=== PATIENT | female | born 1970 | race Caucasian/White ===

== ENCOUNTER → 2016-07-14 | Outpatient (CLI) | payer BC ==
--- NOTE | 2016-07-15 14:46 | CR ---
EXAM DATE: 07/14/16 PATIENT'S AGE: 46 Patient: REN GERONIMO Facility: [place], [place] Site . Site : 1970 Study: XRay Chest [id number]/26/2017 12:21:25 PM Ordering Physician: Yehuda Cline Final Report: INDICATION: Wheezing TECHNIQUE: Chest 2 views COMPARISON: None FINDINGS: Cardiovascular and mediastinum: Heart size and vasculature are normal in caliber and appearance. Mediastinum is within normal limits. Lungs and pleural spaces: No focal consolidation. No sign of pleural effusion. No pneumothorax. Bones and soft tissues: No significant findings. IMPRESSION: No acute cardiopulmonary disease. Dictated by Alexander Andrade MD @ 07/14/2016 11:51:49 PM Dictated by: Alexander Andrade MD @ 07/14/2016 23:51:56 (Electronic Signature) Report Signed by Proxy. [facility]
== END ==
LOC: MW.CHFP 11:44
PROVIDERS: ATTEND Physician Assistant
DX: R06.2 Wheezing (principal)
CPT/HCPCS: 36415; 71020; 71020-26; 85025

== ENCOUNTER 2018-09-29 06:19 | Day surgery (SDC) | payer BC ==
[2018-09-29] MEDS ORDERED: Lactated Ringers 1,000 ML IV SCH ×2 (07:00→08:15)
[2018-09-29] MEDS ORDERED: Propofol 200 MG/20 ML SDV ONE (07:08)
[2018-09-29] MEDS ORDERED: Lidocaine 2% 5 ML SDV ONE (07:08)
[2018-09-29] MEDS ORDERED: fentaNYL 100 MCG/2 ML SDV ONE (07:08)
[2018-09-29] MEDS ORDERED: Midazolam 1 MG/ML 2 ML SDV ONE (07:08)
--- NOTE | 2018-09-29 07:08 | PCM.PREANE ---
Preanesthetic Assessment - Anesthesia/Transfusion/Family Hx Anesthesia History: Prior Anesthesia Without Reaction Other Type of Anesthesia Reaction Comment: Denies any known problem with anesthesia in the past. Family History of Anesthesia Reaction: No Transfusion History: No Prior Transfusion(s) Intubation History: Unknown - Review of Systems General: No Symptoms Pulmonary: No Symptoms Cardiovascular: No Symptoms Gastrointestinal: Abdominal Pain Neurological: No Symptoms Other: Reports: None - Physical Assessment O2 Sat by Pulse Oximetry: 97 Respiratory Rate: 16 Vital Signs: Last Vital Signs Temp 36.3 C 09/29/18 06:50 Pulse 67 09/29/18 06:50 Resp 16 09/29/18 06:50 BP 126/67 09/29/18 06:50 Pulse Ox 97 09/29/18 06:50 Height: 5 ft 2 in Weight: 84.822 kg ASA Class: 2 Mental Status: Alert & Oriented x3 Airway Class: Mallampati = 2 Dentition: Reports: Implants (x1 upper, x2 lower) Thyro-Mental Finger Breadths: 3 Mouth Opening Finger Breadths: 3 ROM/Head Extension: Full Lungs: Clear to Auscultation, Normal Respiratory Effort Cardiovascular: Regular Rate, Regular Rhythm - Allergies Allergies/Adverse Reactions: Allergies Allergy/AdvReac Type Severity Reaction Status Date / Time Penicillins Allergy Mouth Sores Verified 09/26/18 14:17 Sulfa (Sulfonamide Allergy Hives Verified 09/26/18 14:17 Antibiotics) - Blood Blood Available: No - Anesthesia Plan Pre-Op Medication Ordered: None - Acknowledgements Anesthesia Type Planned: MAC Pt an Appropriate Candidate for the Planned Anesthesia: Yes Alternatives and Risks of Anesthesia Discussed w Pt/Guardian: Yes Pt/Guardian Understands and Agrees with Anesthesia Plan: Yes PreAnesthesia Questionnaire Respiratory History: Reports: Sleep Apnea Other Respiratory History: uses CPAP Gastrointestinal History: Reports: Cholelithiasis, GERD 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: Endometrial Ablation, Endometriosis Psychiatric History: Reports: Anxiety Endocrine/Metabolic History: Reports: Obesity/BMI 30+ - Past Surgical History Head Surgeries/Procedures: Reports: None HEENT Surgical History: Reports: Other (See Below) Other HEENT Surgeries/Procedures: has 1 upper and 2 lower dental implants Female Surgical History: Reports: D&C, Hysterectomy, Other (See Below) ( laparotomy for endometriosis, laparoscopy) - SUBSTANCE USE Smoking Status *Q: Never Smoker Recreational Drug Use History: No - HOME MEDS Home Medications: Home Meds Omeprazole [Prilosec] 20 mg PO DAILY 02/12/14 [History] Escitalopram [Lexapro] 10 mg PO DAILY 09/26/18 [History] Estradiol [Yuvafem] 10 mcg VAG ASDIRECTED 09/26/18 [History] - CURRENT (IN HOUSE) MEDS Current Meds: Current Medications Lactated Ringer's (Ringers, Lactated) 1,000 mls @ 125 mls/hr IV ASDIRECTED [facility] Last Admin: 09/29/18 07:03 Dose: 125 mls/hr
--- NOTE | 2018-09-29 08:13 | PCM.OPNOTE ---
- General Post-Op/Procedure Note Date of Surgery/Procedure: 09/29/18 Operative Procedure(s): Esophagogastroduodenoscopy with gastric and distal esophageal biopsies Pre Op Diagnosis: Epigastric pain. Progressive heartburn. Post-Op Diagnosis: Mild to moderate chronic gastritis. Mild distal esophagitis. Anesthesia Technique: MAC (ASA II) Primary Surgeon: Albert Willett Condition: Good Free Text/Narrative:: DICTATION 335306 CPT CODE 30273
[2018-09-29 08:46] VITALS: BP 125/73
--- NOTE | 2018-09-29 10:47 | OR ---
SURGEON: Albert Willett M.D. DATE OF PROCEDURE: 09/29/2018 OPERATION PERFORMED: Esophagogastroduodenoscopy with biopsy. PRIMARY SURGEON: Albert Willett M.D. ANESTHESIA: MAC. ASA CLASSIFICATION: II. PREOPERATIVE DIAGNOSIS: Epigastric pain with progressive heartburn. POSTOPERATIVE DIAGNOSES: 1. [id number] gastritis. 2. Mild esophagitis. DESCRIPTION OF PROCEDURE: The patient was taken to the endoscopy room and positioned on the endoscopy table in the supine position. Time-out was called for appropriate identification of the patient and procedure. A bite block was placed between the patient's teeth. The gastroscope was inserted through the bite block into the oropharynx and advanced without difficulty through the esophagus and stomach into the duodenum where examination was now carried out in a retrograde fashion. The duodenum shows no acute inflammatory changes or ulcerations. The stomach does show [id number] gastritis, particularly in the antrum. Biopsies of the antrum were obtained to rule out Helicobacter pylori. The gastroscope was retroflexed to visualize the proximal stomach greater and lesser curvatures. No ulcers were noted proximally. No polyps were encountered in the stomach. The scope was then straightened and slowly withdrawn again carefully visualizing the greater and lesser curvatures. As the scope was withdrawn to the GE junction, there do appear to be some mild inflammatory changes right at the GE junction. I did not see any evidence of a significant hiatal hernia. Separate biopsies of the GE junction were obtained. The esophagus itself demonstrates good contractility. No mid or proximal lesions were identified. As the scope was withdrawn, the vocal cords were visualized and noted to move symmetrically. The gastroscope was then removed with the patient having tolerated the procedure well. She was taken to recovery room in stable condition. [place] / PAVAN /[id number]
== END 2018-09-29 09:15 | disposition home or self-care (01) ==
LOC: MW.SDS 06:19
PROVIDERS: ATTEND Surgery
DX: K29.50 Unspecified chronic gastritis without bleeding (principal); K21.0 Gastro-esophageal reflux disease with esophagitis; F41.9 Anxiety disorder, unspecified; K80.20 Calculus of gallbladder without cholecystitis without obstruction; G47.30 Sleep apnea, unspecified; Z88.0 Allergy status to penicillin; Z88.2 Allergy status to sulfonamides; Z99.89 Dependence on other enabling machines and devices; Z79.899 Other long term (current) drug therapy
CPT/HCPCS: 43239; J2001; J2250; J2704; J3010; J7120; 00731; 88305; 88312

== ENCOUNTER 2019-03-12 06:28 | Day surgery (SDC) | payer BC ==
[~2019-03-12 06:28] MED LIST: Lactated Ringers 1,000 ML IV SCH; cefOXitin 2 GM in Premix Bag 1 BAG IV ONE
[2019-03-12] MEDS ORDERED: Scopolamine 1.5 MG Transdermal Patch TRDERM PRN (06:54)
--- NOTE | 2019-03-12 07:03 | PCM.PREANE ---
Preanesthetic Assessment - Anesthesia/Transfusion/Family Hx Anesthesia History: Prior Anesthesia Without Reaction Other Type of Anesthesia Reaction Comment: Denies any known problem with anesthesia in the past. Family History of Anesthesia Reaction: No Transfusion History: No Prior Transfusion(s) Intubation History: Unknown - Review of Systems General: No Symptoms Pulmonary: No Symptoms Cardiovascular: No Symptoms Gastrointestinal: No Symptoms Neurological: No Symptoms Other: Reports: None - Physical Assessment Height: 5 ft 2 in Weight: 80.286 kg ASA Class: 2 Mental Status: Alert & Oriented x3 Airway Class: Mallampati = 2 Dentition: Reports: Normal Dentition, Implants (one upper left, two lower on each side) Thyro-Mental Finger Breadths: 2 Mouth Opening Finger Breadths: 2 ROM/Head Extension: Full Lungs: Clear to Auscultation, Normal Respiratory Effort Cardiovascular: Regular Rate, Regular Rhythm - Allergies Allergies/Adverse Reactions: Allergies Allergy/AdvReac Type Severity Reaction Status Date / Time Penicillins Allergy Mouth Sores Verified 09/26/18 14:17 Sulfa (Sulfonamide Allergy Hives Verified 09/26/18 14:17 Antibiotics) - Blood Blood Available: No - Anesthesia Plan Pre-Op Medication Ordered: None - Acknowledgements Anesthesia Type Planned: General Anesthesia Pt an Appropriate Candidate for the Planned Anesthesia: Yes Alternatives and Risks of Anesthesia Discussed w Pt/Guardian: Yes Pt/Guardian Understands and Agrees with Anesthesia Plan: Yes PreAnesthesia Questionnaire HEENT History: Reports: Allergic Rhinitis Cardiovascular History: Reports: None Respiratory History: Reports: Pneumonia, Recurrent, Sleep Apnea Other Respiratory History: uses CPAP Gastrointestinal History: Reports: Cholelithiasis, GERD Genitourinary History: Reports: None 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: Endometrial Ablation, Endometriosis Musculoskeletal History: Reports: None Neurological History: Reports: None Psychiatric History: Reports: Anxiety, Depression Endocrine/Metabolic History: Reports: Obesity/BMI 30+ Hematologic History: Reports: None Immunologic History: Reports: None Oncologic (Cancer) History: Reports: None Dermatologic History: Reports: None - Past Surgical History Head Surgeries/Procedures: Reports: None HEENT Surgical History: Reports: Other (See Below) Other HEENT Surgeries/Procedures: has 1 upper and 2 lower dental implants Cardiovascular Surgical History: Reports: None Respiratory Surgical History: Reports: None GI Surgical History: Reports: None Female Surgical History: Reports: D&C, Hysterectomy, Other (See Below) Other Female Surgeries/Procedures: laparotomy for endometriosis, laparoscopy Endocrine Surgical History: Reports: None Neurological Surgical History: Reports: None Musculoskeletal Surgical History: Reports: None Oncologic Surgical History: Reports: None Dermatological Surgical History: Reports: None - SUBSTANCE USE Smoking Status *Q: Never Smoker Recreational Drug Use History: No - HOME MEDS Home Medications: Home Meds Omeprazole [Prilosec] 20 mg PO DAILY 02/12/14 [History] Escitalopram [Lexapro] 10 mg PO DAILY 09/26/18 [History] Estradiol [Yuvafem] 10 mcg VAG ASDIRECTED 09/26/18 [History] ALPRAZolam [Alprazolam] 1 mg PO DAILY PRN 03/08/19 [History] Albuterol Sulfate [Proair Hfa] 2 puff INH Q4H PRN 03/08/19 [History] Cetirizine [ZyrTEC] 10 mg PO DAILY 03/08/19 [History] Fluticasone/Salmeterol [Advair Hfa 45-21 Mcg Inhaler] 2 puff INH BID PRN [History] Inulin/Chromium Picolinate [Fiber Gummies] 1 tab CHEW DAILY 03/08/19 [History] L.acidoph,Paracasei, B.lactis [Probiotic] 1 tab PO DAILY 03/08/19 [History] hydroCHLOROthiazide [Hydrochlorothiazide] 50 mg PO DAILY PRN 03/08/19 [History] - CURRENT (IN HOUSE) MEDS Current Meds: Current Medications Lactated Ringer's (Ringers, Lactated) 1,000 mls @ 125 mls/hr IV ASDIRECTED [facility] Miscellaneous Information (Remove Patch) 1 ea TRDERM DAILY [facility] Scopolamine (Transderm-Scop) 1.5 mg TRDERM Q72H PRN PRN Reason: Nausea Discontinued Medications Cefoxitin Sodium 2 gm/ Premix 50 mls @ 100 mls/hr IV ONETIME ONE Stop: 03/12/19 06:29
[2019-03-12] MEDS ORDERED: Neostigmine Methylsulfate 1 MG/ML 5 ML Syringe ONE (07:18)
[2019-03-12] MEDS ORDERED: Rocuronium 100 MG/10 ML Syringe ONE (07:18)
[2019-03-12] MEDS ORDERED: Ondansetron 4 MG/2 ML SDV ONE (07:18)
[2019-03-12] MEDS ORDERED: Lidocaine 2% 5 ML SDV ONE (07:18)
[2019-03-12] MEDS ORDERED: Propofol 200 MG/20 ML SDV ONE (07:18)
[2019-03-12] MEDS ORDERED: Glycopyrrolate 0.2 MG/ML SDV ONE ×3 (07:18→09:09)
[2019-03-12] MEDS ORDERED: Midazolam 1 MG/ML 2 ML SDV ONE (07:18)
[2019-03-12] MEDS ORDERED: fentaNYL 250 MCG/5 ML SDV ONE (07:19)
[2019-03-12] MEDS ORDERED: ceFAZolin 1 GM Vial ONE ×2 (07:24→08:01)
[2019-03-12] MEDS ORDERED: Bupivacaine 0.5% 10 ML SDV ONE (07:24)
[2019-03-12] MEDS ORDERED: Sodium Chloride 0.9% 20 ML ONE ×2 (08:01→08:12)
[2019-03-12] MEDS ORDERED: cefOXitin 1 GM Vial ONE (08:12)
[2019-03-12] MEDS ORDERED: ePHEDrine 50 MG/ML SDV ONE (08:18)
[2019-03-12] MEDS ORDERED: HYDROmorphone 2 MG/ML Syringe ONE ×2 (08:34→10:29)
[2019-03-12] MEDS ORDERED: EPINEPHrine 1:10,000 1 MG/10 ML Syringe IVPUSH PRN (08:37)
[2019-03-12] MEDS ORDERED: Atropine 0.1 MG/ML 10 ML Syringe IVPUSH PRN ×2 (08:37)
[2019-03-12] MEDS ORDERED: Albuterol 0.083% 2.5 MG/3 ML Neb Soln NEB PRN (08:37)
[2019-03-12] MEDS ORDERED: Naloxone 0.4 MG/ML Syringe IVPUSH PRN (08:37)
[2019-03-12] MEDS ORDERED: 50% Dextrose in Water 50 ML Syringe IVPUSH PRN (08:37)
[2019-03-12] MEDS ORDERED: Morphine 10 MG/ML Syringe IVPUSH PRN (09:26)
[2019-03-12] MEDS ORDERED: Acetaminophen/HYDROcodone 325-5 MG Tab PO PRN (09:26)
--- NOTE | 2019-03-12 09:29 | PCM.OPNOTE ---
- General Post-Op/Procedure Note Date of Surgery/Procedure: 03/12/19 Operative Procedure(s): Laparoscopic cholecystectomy Pre Op Diagnosis: Cholelithiasis Post-Op Diagnosis: Same Anesthesia Technique: General ET Tube (ASA II) Primary Surgeon: Albert Willett Theoretical Physicist: Lory Zhu Reason Theoretical Physicist Was Necessary: Camera management. Closure of the wounds and teaching purposes. Fluid Replacement, Intraop: 1,700 Output, Urine Amount: 300 EBL in mLs: 50 Condition: Good Free Text/Narrative:: DICTATION 386406 CPT CODE 71267
[2019-03-12] MEDS ORDERED: Lactated Ringers 1,000 ML IV SCH (09:30)
[2019-03-12] MEDS: fentaNYL 100 MCG/2 ML SDV IVPUSH PRN ×2 (09:45→09:52)
--- NOTE | 2019-03-12 10:09 | PCM.POSTAN ---
POST ANESTHESIA ASSESSMENT - MENTAL STATUS Mental Status: Alert, Oriented - VITAL SIGNS Vital Signs: Last Vital Signs Temp 36.7 C 03/12/19 09:21 Pulse 90 03/12/19 10:00 Resp 15 03/12/19 10:00 BP 122/66 03/12/19 10:00 Pulse Ox 92 L 03/12/19 10:00 - RESPIRATORY Respiratory Status: Respiratory Rate WNL, Airway Patent, O2 Saturation Stable - CARDIOVASCULAR CV Status: Pulse Rate WNL, Blood Pressure Stable - GASTROINTESTINAL GI Status: No Symptoms - PAIN Pain Score: 4 - POST OP HYDRATION Hydration Status: Adequate & Stable - OBSERVATIONS Free Text/Narrative:: no anesthesia problems
--- NOTE | 2019-03-12 12:02 | OR ---
SURGEON: Albert Willett M.D. DATE OF PROCEDURE: 03/12/2019 OPERATION PERFORMED: Laparoscopic cholecystectomy. PRIMARY SURGEON: Albert Willett MD. EXTRUSION MANAGER: staffing assistant: PALMIRA Snow. ANESTHESIA: General endotracheal. ASA CLASSIFICATION: II. PREOPERATIVE DIAGNOSIS: Symptomatic cholelithiasis. POSTOPERATIVE DIAGNOSIS: Symptomatic cholelithiasis. ESTIMATED BLOOD LOSS: 50 mL. INTRAOPERATIVE FLUID REPLACEMENT: 1700 mL of crystalloid. INTRAOPERATIVE URINE OUTPUT: 300 mL. DESCRIPTION OF PROCEDURE: The patient was taken to the operating room and placed on the operating table in the supine position. Time-out was called for appropriate identification of the patient and procedure. Thigh-high TEDs and sequential compression boots were placed. Following satisfactory attainment of general endotracheal anesthesia, Rivas catheter was placed in the patient's urinary bladder. The abdomen was prepped with DuraPrep solution. Sterile drapes were applied. The skin just below the umbilicus was infiltrated with 0.5% Marcaine solution. A skin incision was made and deepened through the subcutaneous tissue obtaining hemostasis with the use of electrocautery. The Veress needle was introduced into the peritoneal cavity. Saline drop test was positive. Carbon dioxide pneumoperitoneum was established with the release set at 13 cm of water. Once a satisfactory pneumoperitoneum was established, 5 mm camera and port were placed through the infraumbilical incision. Appropriate sites for placement of the subxiphoid, midclavicular, and anterior axillary ports were identified. Each incision was preemptively infiltrated with 0.5% Marcaine solution. Subxiphoid position was approached first. Skin incision was made and deepened into the subcutaneous tissue obtaining hemostasis with the use of electrocautery. A 12 mm port was placed under camera vision. Our attention was next turned to the midclavicular port, where again the skin had been infiltrated with 0.5% Marcaine solution. A skin incision was made and hemostasis obtained with the use of electrocautery. A 5 mm port was placed through that incision. Anterior axillary port was placed in a similar fashion. Gallbladder was grasped, adhesions were taken down, and the cholecystohepatic triangle was dissected free identifying the cystic duct and obtaining a good critical view of that structure prior to hemoclipping. Cystic artery was also identified and again a critical view obtained prior to hemoclipping. Once that was accomplished, the gallbladder was mobilized away from its bed using electrocautery. Some bile was spilled, but no stones were spilled. Once the gallbladder was amputated, it was properly placed in the Endo Catch bag. This was maintained in situ. There was some oozing from the liver bed. After irrigation and cautery, Bandar was placed into the gallbladder bed and Surgicel placed over this. All fluid was aspirated. The right upper quadrant was then irrigated with 250 mL of saline containing 20 mL of 0.5% Marcaine solution. That fluid was left in situ. The Endo Catch containing gallbladder and 12 mm port were removed. Under camera vision, the 5 mm anterior axillary midclavicular ports were removed and finally the infraumbilical camera and port were removed. Wounds were inspected for hemostasis and no bleeding was noted. The subxiphoid and infraumbilical incisions were closed in 2 layers approximating the subcutaneous tissue with 3-0 Vicryl and the skin with subcuticular 4-0 Monocryl. The anterior axillary and midclavicular incisions were closed with subcuticular Monocryl. All incisions were Steri-Stripped and dressed with sterile Tegaderm pads. Sponge, needle, and instrument counts were all correct. Rivas catheter was removed prior to emergence from anesthesia. Following emergence from anesthesia and extubation, the patient was taken to recovery room in satisfactory condition. [place] BROW[place] /[id number]
--- NOTE | 2019-03-12 13:40 | PCM48HPAN ---
Post Anesthesia Note - EVALUATION WITHIN 48HRS OF ANESTHETIC Vital Signs in Normal Range: Yes Patient Participated in Evaluation: Yes Respiratory Function Stable: Yes Airway Patent: Yes Cardiovascular Function Stable: Yes Hydration Status Stable: Yes Pain Control Satisfactory: Yes Nausea and Vomiting Control Satisfactory: Yes Mental Status Recovered: Yes Vital Signs: Last Vital Signs Temp 36.7 C 03/12/19 09:21 Pulse 88 03/12/19 10:10 Resp 18 03/12/19 10:10 BP 119/64 03/12/19 10:10 Pulse Ox 92 L 03/12/19 10:10 - COMMENTS/OBSERVATIONS Free Text/Narrative:: no anesthesia problems
[2019-03-12] MEDS ORDERED: HYDROmorphone 2 MG/ML Syringe IVPUSH PRN (14:23)
[2019-03-12 14:48] VITALS: BP 114/65
[2019-03-12 14:50] VITALS: PULSE 93
== END 2019-03-12 13:40 | disposition home or self-care (01) ==
LOC: MW.SDS 06:28
PROVIDERS: ATTEND Surgery
DX: K80.10 Calculus of gallbladder with chronic cholecystitis without obstruction (principal); K21.0 Gastro-esophageal reflux disease with esophagitis; F41.9 Anxiety disorder, unspecified; E66.9 Obesity, unspecified; Z88.2 Allergy status to sulfonamides; Z88.0 Allergy status to penicillin; Z79.899 Other long term (current) drug therapy; Z79.82 Long term (current) use of aspirin; Z68.32 Body mass index [BMI] 32.0-32.9, adult
CPT/HCPCS: 47562; A9270; J0694; J1170; J2001; J2250; J2405; J2704; J3010; J3490; J7120; J0690